=== PATIENT | female | born 1985 ===

== ENCOUNTER 2017-09-30 14:56 | Emergency (ER) | payer SELFPAY ==
[2017-09-30 15:22] VITALS: RESP 18
--- NOTE | 2017-09-30 18:02 | ED PDOC ---
HPI: CCC, URI, Sore Throat Time Seen by Provider: 09/30/17 15:47 Chief Complaint (Nursing): ENT Problem Chief Complaint (Provider): ENT Problem History Per: Patient History/Exam Limitations: no limitations Have you had recent travel within the past 21 days to any of the following countries: [place], [place], [place] or [place]?: No Onset/Duration Of Symptoms: Days (x6) Current Symptoms Are (Timing): Still Present Sick Contacts (Context): None Additional Complaint(s): 32 y/o female with no significant pmhx, who presents to the ED for evaluation throat pain since Saturday and fever since (Tmax 102). States shes had pain with swallowing since Saturday. Says this morning symptoms worsened prompting ED visit. Reports taking Ampicillin since Saturday, which her mother sent from her home country, without relief of symptoms. Says she has not been evaluated by a provider for this complaint. Denies cough, shortness of breath, nausea, vomiting, or diarrhea, drooling, chest pain, sick contacts, or recent travel. PMD: None Past Medical History Reviewed: Historical Data, Nursing Documentation, Vital Signs Vital Signs: Last Vital Signs Temp 99.0 F 09/30/17 19:15 Pulse 78 09/30/17 19:15 Resp 18 09/30/17 19:15 BP 121/78 09/30/17 19:15 Pulse Ox 100 09/30/17 19:25 - Medical History PMH: No Chronic Diseases - Surgical History Surgical History: No Surg Hx - Family History Family History: States: Unknown Family Hx - Social History Current smoker - smoking cessation education provided: No Alcohol: None Drugs: Cannabis (occasional) - Home Medications Home Medications: Ambulatory Orders Medication Instructions Recorded Clindamycin [Cleocin] 300 mg PO TID #30 cap 09/30/17 Naproxen 500 mg PO BID PRN #20 tablet 09/30/17 - Allergies Allergies/Adverse Reactions: Allergies Allergy/AdvReac Type Severity Reaction Status Date / Time No Known Allergies Allergy Verified 09/30/17 15:20 Review of Systems ROS Statement: Except As Marked, All Systems Reviewed And Found Negative Constitutional: Positive for: Fever ENT: Positive for: Throat Pain Cardiovascular: Negative for: Chest Pain Respiratory: Negative for: Cough, Shortness of Breath Gastrointestinal: Negative for: Nausea, Vomiting, Diarrhea Physical Exam - Reviewed Nursing Documentation Reviewed: Yes Vital Signs Reviewed: Yes - Physical Exam Comments: GENERAL APPEARANCE: Patient is awake, alert, oriented x 3, in no acute distress. SKIN: Warm, dry; (-) cyanosis. EYES: (-) conjunctival pallor. ENMT: Mucous membranes moist. TMs: Non-bulging, non-erythematous. Airway patent: (-) stridor. Pharynx and tonsils: 3+ tonsillar hypertrophy, (+) diffuse erythema, (+) b/l tonsillar exudates. Uvula midline. No drooling. NECK: Supple, FROM (-) tenderness, (-) stiffness, (-) lymphadenopathy. CHEST AND RESPIRATORY: (-) rhonchi, (-) rales, (-) wheezes, (-) pleural rub; breath sounds equal bilaterally and non-labored. Speaking full sentences. HEART AND CARDIOVASCULAR: (-) irregularity; (-) murmur, (-) gallop. ABDOMEN AND GI: Soft; (-) tenderness. EXTREMITIES: (-) deformity; (-) edema. NEURO AND PSYCH: Mental status as above. Cranial nerves grossly intact. - ECG O2 Sat by Pulse Oximetry: 100 (RA) Pulse Ox Interpretation: Normal Medical Decision Making Medical Decision Making: Time: 15:49 Initial Impression: Tonsillitis Plan: --Throat culture --Rapid strep group A antigen --Reevaluation --Decadron 10mg IM --Motrin 600mg PO Time: 17:41 --Clindamycin 300mg PO --Rapid Strep: negative Time: 18:07 --Tylenol 650mg PO --Patient pending repeat vitals --Reevaluation Time: 1914 On re-evaluation, patient reports improvement of symptoms. On exam, patient remains AAOx3, in no acute distress. Lungs clear to auscultation, cardiac RRR, abdomen soft, non-tender, repeat neuro exam shows no focal findings. VSS. Repeat temp: 99.0. Repeat HR: 78. Repeat BP: 121/78. Lab/Diagnostic results d/w the patient in great detail. Diagnosis of tonsillitis , acute throat pain d/w the patient. Based on history, exam and diagnostic results, plan will be for outpatient follow up. Patient instructed to follow-up with pmd / referral provided / the clinic in 1- 2 days without fail. Advised to take medication as prescribed. Return to the emergency room at any time for any new or worsening symptoms. Patient states she fully agrees with and understands discharge instructions. States that she agrees with the plan and disposition. Verbalized and repeated discharge instructions and plan. I have given the patient opportunity to ask any additional questions. Scribe Attestation: Documented by Lizandro Morales, acting as a scribe for Kyung Washington PA-C. Provider Scribe Attestation: All medical record entries made by the Scribe were at my direction and personally dictated by me. I have reviewed the chart and agree that the record accurately reflects my personal performance of the history, physical exam, medical decision making, and the department course for this patient. I have also personally directed, reviewed, and agree with the discharge instructions and disposition. Disposition - Clinical Impression Clinical Impression: Tonsillitis with exudate, Throat pain in adult - Patient ED Disposition Is Patient to be Admitted: No Counseled Patient/Family Regarding: Studies Performed, Diagnosis, Need For Followup, Rx Given - Disposition Referrals: [facility] [Outside] Disposition: Routine/Home Disposition Time: 19:19 Condition: STABLE Prescriptions: Clindamycin [Cleocin] 300 mg PO TID #30 cap Naproxen 500 mg PO BID PRN #20 tablet PRN Reason: pain, fever Instructions: Sore Throat in Adults Forms: [employer] (Monegasque) Print Language: NEPALI - POA Present On Arrival: None Results - Lab Results Lab Results: 09/30/17 16:00 Grp A Beta Strep Ag Negative
[2017-09-30] MEDS ORDERED: Acetaminophen 160 mg/5 ml UD PO STA (18:07)
[2017-09-30 19:15] VITALS: BP 121/78; PULSE 78; TEMP 99
[2017-09-30 19:22] VITALS: O2SAT 100
== END 2017-09-30 19:35 | disposition home or self-care (01) ==
LOC: H.ER 14:56
DX: J03.90 Acute tonsillitis, unspecified (principal)
CPT/HCPCS: 87070; 87430; 96372; 99283; J1100